=== PATIENT | female | born 1970 | race Two or more races ===

== ENCOUNTER 2021-01-01 09:25 | Outpatient (CLI) | payer OTHER ==
[2021-01-01] MEDS ORDERED: B CO1TAB14 PO (09:57)
[2021-01-01] MEDS ORDERED: MAGN400T9 PO (09:57)
[2021-01-01] MEDS ORDERED: CHOL100012 PO (09:57)
[2021-01-01] MEDS ORDERED: IBUP-1223 PO (09:57)
[2021-01-01 10:55] LABS: MICROSCOPIC AUTO
[2021-01-01 11:01] LABS: BASOPHILS % (AUTO) 1 % (0-1); EOSINOPHILS % (AUTO) 2 % (1-7); LYMPHOCYTES % (AUTO) 26 % (22-44); MEAN CORPUSCULAR HEMOGLOBIN 27.3 pg (27.0-34.8); MEAN CORPUSCULAR HGB CONC 33.3 g/dL (32.4-35.8); MEAN PLATELET VOLUME 8.4 fL (7.4-10.4); MONOCYTES % (AUTO) 6 % (2-9); NEUTROPHILS % (AUTO) 66 % (42-75); PLATELET COUNT 290 x10^3/uL (130-400); RED BLOOD COUNT 4.88 x10^6/uL (3.82-5.3); RED CELL DISTRIBUTION WIDTH 13.6 % (9.6-15.2)
[2021-01-01 11:06] LABS: ANION GAP 7 mmol/L (5-15); CALCIUM 8.4 mg/dL (8.5-10.1); CHLORIDE 107 mmol/L (98-107)
[2021-01-01 11:07] LABS: CREATININE 0.75 mg/dL (0.55-1.02)
[2021-01-01 11:13] LABS: INTERNATIONAL NORMALIZED RATIO 0.95 (0.93-1.1); PROTHROMBIN TIME 10.2 Seconds (9.6-11.5)
== END 2021-01-01 23:59 | disposition home or self-care (01) ==
LOC: STAR 09:25
PROVIDERS: ATTEND Neurological Surgery
DX: Z01.818 Encounter for other preprocedural examination (principal); Z01.811 Encounter for preprocedural respiratory examination; Z01.810 Encounter for preprocedural cardiovascular examination; Z20.822 Contact with and (suspected) exposure to COVID-19; Z01.812 Encounter for preprocedural laboratory examination; M47.896 Other spondylosis, lumbar region; M54.17 Radiculopathy, lumbosacral region; M43.06 Spondylolysis, lumbar region; R94.31 Abnormal electrocardiogram [ECG] [EKG]; R79.1 Abnormal coagulation profile; R82.90 Unspecified abnormal findings in urine; M51.26 Other intervertebral disc displacement, lumbar region; R00.1 Bradycardia, unspecified
CPT/HCPCS: 36415; 71046; 80048; 81001; 85025; 85610; 85730; 87635; 93005

== ENCOUNTER 2021-01-08 05:32 | Day surgery (SDC) | payer OTHER ==
[~2021-01-08] VITALS: Ht 162.6 cm; Wt 89.5 kg
[~2021-01-08 05:32] MED LIST: B CO1TAB14 PO; CHOL100012 PO; IBUP-1223 PO; MAGN400T9 PO
[2021-01-08 06:06] VITALS: BP 145/87
[2021-01-08] MEDS ORDERED: CEFAZOLIN 1,000 MG ONE ×2 (06:17→08:03)
[2021-01-08] MEDS ORDERED: BUPIVACAINE/PF 0.5% ONE (06:17)
[2021-01-08] MEDS ORDERED: EPINEPHRINE 1 MG/ML, 1ML ONE (06:17)
[2021-01-08] MEDS ORDERED: VANCOMYCIN 1,000 MG ONE (06:17)
[2021-01-08] MEDS ORDERED: LACTATED RINGERS 1,000 ML IV SCH (06:30)
[2021-01-08] MEDS ORDERED: CHLORHEXIDINE 15 ML UDC PO ONE (06:30)
[2021-01-08] MEDS ORDERED: MIDAZOLAM 1 MG/ML, 2ML ONE (06:45)
[2021-01-08] MEDS ORDERED: FENTANYL PF 250 MCG/5ML ONE (06:47)
[2021-01-08] MEDS ORDERED: BUPIVACAINE/PF-EPI 0.5% 1:200K INFIL ONE (07:33)
[2021-01-08 07:41] LABS: HCG UR SG 1.012 (1.003-1.030)
[2021-01-08] MEDS ORDERED: LABETALOL 5MG/ML, 20ML IV PRN (08:00)
[2021-01-08] MEDS ORDERED: OXYcodone 5 MG/5 ML ORAL.SOL UDC PO PRN (08:00)
[2021-01-08] MEDS ORDERED: ACETAMINOPHEN 325 MG TABLET PO PRN (08:00)
[2021-01-08] MEDS ORDERED: ALBUTEROL SULFATE 2.5 MG/3 ML NPPB PRN (08:00)
[2021-01-08] MEDS ORDERED: METHOCARBAMOL 1,000 MG in DEXTROSE 5% 100 ML IV PRN (08:00)
[2021-01-08] MEDS ORDERED: FENTANYL PF 100 MCG/2ML IV PRN (08:00)
[2021-01-08] MEDS ORDERED: HYDROmorphone 1 MG/ML, 1ML INJ IVPush PRN (08:00)
[2021-01-08] MEDS ORDERED: MEPERIDINE/PF 25MG/0.5ML IVPush PRN (08:00)
[2021-01-08] MEDS ORDERED: PROMETHAZINE 25 MG/ML, 1ML IVPush PRN (08:00)
[2021-01-08] MEDS ORDERED: MIDAZOLAM 1 MG/ML, 2ML IV PRN (08:00)
[2021-01-08] MEDS ORDERED: LIDOCAINE-MPF 2% ,5ML ONE (08:02)
[2021-01-08] MEDS ORDERED: PROPOFOL 10 MG/ML, 20ML ONE (08:03)
[2021-01-08] MEDS ORDERED: SUCCINYLCHOLINE 20 MG/ML, 10ML ONE (08:03)
[2021-01-08] MEDS ORDERED: ONDANSETRON 2MG/ML, 2ML ONE (08:03)
[2021-01-08] MEDS ORDERED: ROCURONIUM 10MG/ML,5ML ONE (08:03)
[2021-01-08] MEDS ORDERED: DEXAMETHASONE 4 MG/ML, 1ML ONE (08:03)
[2021-01-08] MEDS ORDERED: OXYC-293 PO (08:32)
[2021-01-08] MEDS ORDERED: ACETAMINOPHEN 650 MG/20.3 ML UDC ONE (08:39)
[2021-01-08] MEDS ORDERED: OXYcodone 5 MG/5 ML ORAL.SOL UDC ONE (08:40)
[2021-01-08] MEDS ORDERED: FENTANYL PF 100 MCG/2ML ONE (08:40)
== END 2021-01-08 11:00 | disposition home or self-care (01) ==
LOC: OUT 05:32
PROVIDERS: ATTEND Neurological Surgery
DX: M51.16 Intervertebral disc disorders with radiculopathy, lumbar region (principal); M48.061 Spinal stenosis, lumbar region without neurogenic claudication; M47.26 Other spondylosis with radiculopathy, lumbar region; G43.909 Migraine, unspecified, not intractable, without status migrainosus; E66.9 Obesity, unspecified; Z79.1 Long term (current) use of non-steroidal anti-inflammatories (NSAID); Z79.899 Other long term (current) drug therapy
CPT/HCPCS: 63030; 72100; 81025; 95938; 95941; J0171; J0330; J0690; J1100; J2250; J2405; J2704; J2800; J3010; J3370; J7120